=== PATIENT | female | born 1985 | race Caucasian/White ===

== ENCOUNTER 2025-01-06 23:50 | Emergency (ER) | payer MEDICAID, OTHER ==
[~2025-01-06] VITALS: Ht 160 cm; Wt 68.1 kg
[2025-01-07 00:48] VITALS: O2SAT 98
--- NOTE | 2025-01-07 01:05 | ED.PDOC ---
HPI (NEURO) HPI Comments Pt presents to the ER with C/O headache xtoday. PMH- migraines, pt reports associated N/V/D, dizziness, N/V/D, and neck tightness. Pt reports taking Robaxin @ 1400 with no relief. Upon provider assessment pt complaint of non radiating chest tightness with hand numbness. VSS, RR even and unlabored, SPO2 98% on RA. Provider Saad assessing patient at this time. 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 FIXER History Family History Family History: Reviewed,noncontributory to illness Social History Smoker: Non-Smoker Alcohol: Denies ETOH Use Drugs: Denies Drug Use Constitutional: denies: chills, diaphoresis, fatigue, fever, malaise, sweats, w eakness, others EENTM: denies: blurred vision, double vision, ear bleeding, ear discharge, ear drainage, ear pain, ear ringing, eye pain, eye redness, hearing loss, mouth pain, mouth swelling, nasal discharge, nose bleeding, nose congestion, nose pain, photophobia, tearing, throat pain, throat swelling, voice changes, others Respiratory: denies: cough, hemoptysis, orthopnea, SOB at rest, shortness of breath, SOB with excertion, stridor, wheezing, others Cardiovascular: denies: chest pain, dizzy spells, diaphoresis, Dyspnea on exertion, edema, irregular heart beat, left arm pain, lightheadedness, palpitations, PND, syncope, others Gastrointestinal: denies: abdomen distended, abdominal pain, blood streaked bowels, constipated, diarrhea, dysphagia, difficulty swallowing, hematemesis, melena, nausea, poor appetite, poor fluid intake, rectal bleeding, rectal pain, vomiting, others Genitourinary: denies: abnormal vagina bleeding, burning, dyspareunia, dysuria, flank pain, frequency, hematuria, incontinence, pain, , vagina di scharge, urgency, others Neurological: reports: headache; denies: dizziness, fainting, left sided numbness, left sided weakness, numbness, paresthesia, pre-existing deficit, right sided numbness, right sided weakness, seizure, speech problems, tingling, tremors, weakness, others Musculoskeletal: denies: back pain, gout, joint pain, joint swelling, muscle pain, muscle stiffness, neck pain, others Integumetry: denies: bruises, change in color, change in hair/nails, dryness, laceration, lesions, lumps, rash, wounds, others Allergic/Immunocompromised: denies: Difficulty Healing, Frequent Infections, Hives, Itching, others Hematologic/Lymphatic: denies: anemia, blood clots, easy bleeding, easy bruising, swollen glands, others Endocrine: denies: excessive hunger, excessive sweating, excessive thirst, excessive urination, flushing, intolerance to cold, intolerance to heat, unexplained weight gain, unexplained weight loss, others Psychiatric: denies: anxiety, bipolar disorder, depression, hopeless, panic disorder, schizophrenia, sleepless, suicidal, others Physical Exam General Appearance: No Apparent Distress, Normal HEENT: Normal ENT Inspection, Pharynx Normal, TMs Normal Neck: Limited Range of Motion, Tender Lateral Respiratory: Lungs Clear, No Respiratory Distress, Normal Breath Sounds Cardiovascular: No Edema, No JVD, No Murmur, No Gallop, Normal Peripheral Pulses, Regular Rate/Rhythm Breast Exam: Deferred Gastrointestinal: No Organomegaly, Non Tender, No Pulsatile Mass, Normal Bowel Sounds, Soft Genitalia: Deferred Pelvic: Deferred Rectal: Deferred Extremities: Normal capillary refill, Normal inspection, Normal range of motion, Non-tender, No pedal edema Musculoskeletal : Apperance: Normal Neurologic: Alert, No Motor Deficits, Normal Affect, Normal Mood, No Sensory Deficits Cerebellar Function: Normal Reflexes: Normal Skin: Dry, Normal Color, Warm Lymphatic: No Adenopathy Was a procedure done? Was a procedure done?: No Differential Diagnosis (SZ) Headache: Cluster, Migraine, Epidural Hemorrhage, Intracerebral Hemorrhage, Subarachnoid Hemorrhage, Subdural Hemorrhage X-Ray, Labs, Meds, VS Vital Signs Date Time Temp Pulse Resp B/P (MAP) Pulse Ox O2 Delivery O2 Flow Rate FiO2 01/07/25 01:00 103 01/07/25 01:00 97.6 107 10 112/72 (85) 98 97.6 01/07/25 00:48 98 Room Air* 0 21 01/07/25 00:47 98.0 104 14 113/71 (85) 98 98.0 Current Medications Medications (Trade) Dose Ordered Sig/Rajwinder Route Start Time Stop Time Status Last Admin Prochlorperazine Edisylate (Compazine Inj) 5 mg ONCE ONCE IV 01/07/25 01:15 01/07/25 01:16 DC 01/07/25 01:33 Sodium Chloride 1,000 ml @ 1,000 mls/hr Q1H ONCE IV 01/07/25 01:15 01/07/25 02:14 DC 01/07/25 01:33 Ketorolac Tromethamine (Toradol Injection) 30 mg ONCE ONCE IV 01/07/25 01:15 01/07/25 01:16 DC 01/07/25 01:33 Dexamethasone Sodium Phosphate (Decadron Injection) 10 mg ONCE ONCE IV 01/07/25 01:15 01/07/25 01:16 DC 01/07/25 01:33 Ondansetron HCl (Zofran) 4 mg ONCE ONCE IV 01/07/25 01:15 01/07/25 01:16 DC 01/07/25 01:32 X-Ray, Labs, Meds, VS Comment PATIENT GIVEN COMPAZINE 5 MG IV PUSH, DECADRON 10 MG IV, ZOFRAN 4 MG IV PUSH, TORADOL 30 MG IV AND NORMAL SALINE 1000 ML BOLUS. REPORTS RESOLUTION IN HEADACHE REQUESTING DISCHARGE AT THIS TIME. SCRIPT TRIAL OF SUMATRIPTAN ADVISED TO TAKE MEDICATIONS PRESCRIBED SIDE EFFECTS DISCUSSED. ADVISED TO FOLLOW UP WITH HER PCP IN 2-3 DAYS NECESSARY ER RETURN PRECAUTIONS GIVEN PATIENT INDICA PIA UNDERSTANDING AGREES WITH DISCHARGE PLAN OF CARE Time of 1ST Reevaluation: 01:03 Reevaluation 1ST: Unchanged Time of 2ND Reevaluation: 02:33 Reevaluation 2ND: Improved Patient Education/Counseling: Diagnosis, Treatment, Prognosis, Need For Follow Up Family Education/Counseling: No Family Present Departure 1 Departure Time of Disposition: 02:32 Impression: Primary Impression: Headache Qualified Codes: R51.9 - Headache, unspecified Disposition: 01 HOME / SELF CARE / HOMELESS Condition: Stable e-Prescriptions Sumatriptan Succinate (Sumatriptan Succinate) 25 Mg Tab 25 MG PO ONCE PRN for 3 Days, #6 TAB TAKE 1 TABLET BY MOUTH AT ONSET OF HEADACHE MAY REPEAT ANOTHER TABLET 2 HOURS LATER IF STILL WITH MIGRAINE Prov: CELESTE CRENSHAW 01/07/25 Discharged With: Significant Other Critical Care Note Critical Care Time?: No Stability Stability form required: CELESTE MeloP Jan 07, 2025 01:05
[2025-01-07] MEDS: ONDANSETRON HCL 4 MG/2 ML VIAL IV ONE (01:32)
[2025-01-07] MEDS: PROCHLORPERAZINE EDISYLATE 5 MG/ML 2ML VIAL IV ONE (01:33)
[2025-01-07] MEDS: SODIUM CHLORIDE 0.9% 1,000 ML IV ONE (01:33)
[2025-01-07] MEDS: KETOROLAC TROMETH 30 MG/ML 1ML VIAL IV ONE (01:33)
[2025-01-07] MEDS ORDERED: SUMA25TA2 PO (02:33)
[2025-01-07 03:49] VITALS: BP 122/78; PULSE 78; RESP 18; TEMP 98.1; O2SAT 98
--- NOTE | 2025-01-07 06:07 | ECG ---
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
== END 2025-01-07 03:54 | disposition home or self-care (01) ==
LOC: ER 23:50
DX: G43.909 Migraine, unspecified, not intractable, without status migrainosus (principal)
CPT/HCPCS: 93005; 96361; 96374; 96375; 99284; J0780; J1100; J1885; J2405; J7030

== ENCOUNTER 2025-01-13 12:51 | Emergency (ER) | payer MEDICAID ==
[~2025-01-13] VITALS: Ht 162.6 cm; Wt 66.9 kg
[2025-01-13 13:11] VITALS: BP 119/83; PULSE 109; RESP 16; TEMP 97.9; O2SAT 98
--- NOTE | 2025-01-13 13:33 | ED.PDOC ---
History of Present Illness HPI Comments A 39-YEAR-OLD FEMALE PRESENTS WITH A CHIEF COMPLAINT OF HEADACHE X 3 DAYS. PATIENT WAS JUST SEEN HERE AT THIS FACILITY 3 DAYS AGO AND WAS GIVEN A PRESCRIPTION FOR HER HEADACHE, BUT STATES THAT SHE DID NOT PICK IT UP. PER PT, SHE HAS HX OF MIGRAINE AND THIS TIME THE PAIN IS UNIQUE BECAUSE SHE HAS NECK PAIN, TINGLING AND NUMBNESS IN HER ARMS AND HANDS. PATIENT IS REQUESTING A CT SCAN OF HER HEAD. NO OTHER SYMPTOMS OR MODIFYING FACTORS PRESENT AT THIS TIME. PT IS ALERT, ORIENTATION X4 WITH NORMAL GAIT. Chief Complaint: Headache Time Seen by MD: 13:20 Primary Care Provider: n/a Reviewed Notes: Nurses Notes, Client Associate Notes, Allergies Allergies: Coded Allergies: NO KNOWN ALLERGIES (Unverified , 01/07/25) Home Meds Discontinued Scripts Sumatriptan Succinate (Sumatriptan Succinate) 25 Mg Tab, 25 MG PO ONCE PRN for 3 Days, #6 TAB TAKE 1 TABLET BY MOUTH AT ONSET OF HEADACHE MAY REPEAT ANOTHER TABLET 2 HOURS LATER IF STILL WITH MIGRAINE Prov:DENIRVINK [facility] 01/07/25 Information Source: Patient Mode of Arrival: Ambulatory Severity: Moderate Timing: Days Duration: Since onset, Days Prehospital treatment: None Medication Refill: For: Other (HEADACHE ) Past Medical History Past Medical History (Other): MIGRAINE HEADACHE Surgical History: Denies all surgeries VP DESIGN History: No Pertinent VP DESIGN History Family History Family History: Reviewed,noncontributory to illness Social History Smoker: Non-Smoker Alcohol: Denies ETOH Use Drugs: Denies Drug Use Lives In: Home Constitutional: denies: chills, diaphoresis, fatigue, fever, malaise, sweats, weakness, others EENTM: denies: blurred vision, double vision, ear bleeding, ear discharge, ear drainage, ear pain, ear ringing, eye pain, eye redness, hearing loss, mouth pain, mouth swelling, nasal discharge, nose bleeding, nose congestion, nose pain, photophobia, tearing, throat pain, throat swelling, voice changes, others Respiratory: denies: cough, hemoptysis, orthopnea, SOB at rest, shortness of breath, SOB with excertion, stridor, wheezing, others Cardiovascular: denies: chest pain, dizzy spells, diaphoresis, Dyspnea on exertion, edema, irregular heart beat, left arm pain, lightheadedness, palpitations, PND, syncope, others Gastrointestinal: denies: abdomen distended, abdominal pain, blood streaked bowels, constipated, diarrhea, dysphagia, difficulty swallowing, hematemesis, melena, nausea, poor appetite, poor fluid intake, rectal bleeding, rectal pain, vomiting, others Genitourinary: denies: abnormal vagina bleeding, burning, dyspareunia, dysuria, flank pain, frequency, hematuria, incontinence, pain, , vagina discharge, urgency, others Neurological: reports: headache, tingling; denies: dizziness, fainting, left sided numbness, left sided weakness, numbness, paresthesia, pre-existing deficit, right sided numbness, right sided weakness, seizure, speech problems, tremors, weakness, others Musculoskeletal: denies: back pain, gout, joint pain, joint swelling, muscle pain, muscle stiffness, neck pain, others Integumetry: denies: bruises, change in color, change in hair/nails, dryness, laceration, lesions, lumps, rash, wounds, others Allergic/Immunocompromised: denies: Difficulty Healing, Frequent Infections, Hives, Itching, others Hematologic/Lymphatic: denies: anemia, blood clots, easy bleeding, easy bruising, swollen glands, others Endocrine: denies: excessive hunger, excessive sweating, excessive thirst, excessive urination, flushing, intolerance to cold, intolerance to heat, unexplained weight gain, unexplained weight loss, others Psychiatric: denies: anxiety, bipolar disorder, depression, hopeless, panic disorder, schizophrenia, sleepless, suicidal, others All Other Systems: Reviewed and Negative Physical Exam General Appearance: No Apparent Distress, Normal HEENT: Normal ENT Inspection, PERRL/EOMI, Pharynx Normal, TMs Normal Neck: Full Range of Motion, Non-Tender, Normal, Normal Inspection Respiratory: Chest Non-Tender, Lungs Clear, No Accessory Muscle Use, No Respiratory Distress, Normal Breath Sounds Cardiovascular: No Edema, No JVD, No Murmur, No Gallop, Normal Peripheral Pulses, Regular Rate/Rhythm Breast Exam: Deferred Gastrointestinal: No Organomegaly, Non Tender, No Pulsatile Mass, Normal Bowel Sounds, Soft Genitalia: Deferred Pelvic: Deferred Rectal: Deferred Extremities: No calf tenderness, Normal capillary refill, Normal inspection, Normal range of motion, Non-tender, No pedal edema Musculoskeletal : Apperance: Normal Neurologic: Alert, automobile sales consultant II-XII nml as Tested, No Motor Deficits, Normal Affect, Normal Mood, No Sensory Deficits Cerebellar Function: Normal Reflexes: Normal Skin: Dry, Normal Color, Warm Peripheral Pulses: 2+ carotid (R), 2+ carotid (L) Lymphatic: No Adenopathy Was a procedure done? Was a procedure done?: No Differential Dx Considerations may include: MIGRAINE HEADACHE, TENSION HEADACHE, BRAIN MASS X-Ray, Labs, Meds, VS Vital Signs Date Time Temp Pulse Resp B/P (MAP) Pulse Ox O2 Delivery O2 Flow Rate FiO2 01/13/25 13:11 97.9 109 16 119/83 (95) 98 97.9 PATIENT: SHERIDAN JANEACCT: [id number]: [id number] : 1985 LOC: ER ROOM / BED: / AGE / SEX: 39 / F ADM STATUS: REG ER SERVICE [id number] ORDERING PHYSICIAN: FLOR EGAN PROCEDURE(s): HWOCT - HEAD WITHOUT CONTRAST REASON: HEADACHE ORDER NUMBER(s): [id number], ACCESSION NUMBER(s): [id number] EXAM: CT HEAD WITHOUT CONTRAST INDICATION: HEADACHE TECHNIQUE: CT of the head without intravenous contrast. Radiation Dose Information: CT Dose: CTDI volume is 51.24 mGy. Dose-length product is 821.48 mGy*cm The dose indicators for CT are the volume Computed Tomography (CT) Dose Index (CTDIvol) and the Dose Length Product (DLP), and are measured in units of mGy and mGy-cm, respectively. These indicators are not patient dose, but values generated from the CT scanner acquisition factors. The report includes radiation exposure data for exposures received during this examination. COMPARISON: None FINDINGS: There is no evidence of acute intracranial hemorrhage, extra-axial collection, mass effect, midline shift, herniation or hydrocephalus. The ventricles, sulci and cisterns are age appropriate. The juan-white differentiation is intact. Patchy periventricular and subcortical white matter hypoattenuation is nonspecific but may be related to small vessel ischemic disease. The visualized paranasal sinuses and mastoid air cells are clear. The surrounding soft tissues and osseous structures are unremarkable. IMPRESSION: 1. No acute intracranial abnormality. 2. No paranasal sinus or mastoid disease. ATED BY: FABIANA GROSSMAN Jr., DO DICTATED DATE/TIME: 01/13/251409 SIGNED BY: FABIANA GROSSMAN Jr., SIGNED DATE/TIME: 01/13/251409 CC: X-Ray, Labs, Meds, VS Comment EXTERNAL MEDICAL RECORDS: NONE INDEPENDENT HISTORIANS: NONE SOCIAL DETERMINANTS OF HEALTH: NONE LABS ORDERED: NONE REVIEWED AND INTERPRETED RESULTS: NONE IMAGING ORDERED: CT-HEAD TREATMENTS ORDERED: NONE PATIENT'S CASE AND RESULTS HAVE BEEN DISCUSSED WITH -- AND THEY AGREE WITH MY PLAN OF CARE. RX: IMITREX 50MG I HAVE DISCUSSED IMAGING AND LAB RESULTS WITH THE PATIENT AND HAVE INSTRUCTED THE PATIENT TO FOLLOW UP WITH THEIR PCP IN 1-2 DAYS. THE PATIENT FULLY UNDERSTANDS THEIR RESULTS AND ARE AWARE THEY NEED TO FOLLOW UP WITH THEIR PCP FOR FURTHER EVALUATION IF THEIR SYMPTOMS PERSIST. Time of 1ST Reevaluation: 13:50 Reevaluation 1ST: Improved Time of 2ND Reevaluation: 14:42 Reevaluation 2ND: Improved Patient Education/Counseling: Diagnosis, Treatment, Need For Follow Up Family Education/Counseling: Diagnosis, Treatment, Need For Follow Up Medical Screening: No EMC Exist At This Time SEPSIS Sepsis Screen Physician Orders Head Without Contrast (01/13/25 13:23) Vital Signs Date Time Temp Pulse Resp B/P (MAP) Pulse Ox O2 Delivery O2 Flow Rate FiO2 01/13/25 13:11 97.9 109 16 119/83 (95) 98 97.9 Departure 1 Departure Time of Disposition: 14:42 Impression: Primary Impression: Migraine headache Qualified Codes: G43.909 - Migraine, unspecified, not intractable, without status migrainosus Disposition: 01 HOME / SELF CARE / HOMELESS Condition: Stable Additional Instructions: FOLLOW-UP WITH PCP IN 1 TO 2 DAYS. TAKE MEDICATIONS PRESCRIBED. RETURN TO ED FOR ANY NEW OR WORSENING SYMPTOMS. e-Prescriptions Sumatriptan Succinate (Imitrex) 50 Mg Tab 1 TAB PO BID, #20 TAB Prov: FLOR EGAN 01/13/25 Discharged With: Self Critical Care Note Critical Care Time?: No Stability Stability form required: No Heart Score Heart Score: Heart Score Response (Comments) Value History N/A 0 EKG N/A 0 Age N/A 0 Risk Factors N/A 0 Troponin N/A 0 Total 0 I personally scribed for FLOR EGAN ([email or web address]) on 01/13/25 at 13:33. Electronically submitted by Howie Adan ([email or web address]). FLOR EGAN Jan 13, 2025 13:33
--- NOTE | 2025-01-13 14:11 | DVH ---
EXAM: CT HEAD WITHOUT CONTRAST INDICATION: HEADACHE TECHNIQUE: CT of the head without intravenous contrast. Radiation Dose Information: CT Dose: CTDI volume is 51.24 mGy. Dose-length product is 821.48 mGy*cm The dose indicators for CT are the volume Computed Tomography (CT) Dose Index (CTDIvol) and the Dose Length Product (DLP), and are measured in units of mGy and mGy-cm, respectively. These indicators are not patient dose, but values generated from the CT scanner acquisition factors. The report includes radiation exposure data for exposures received during this examination. COMPARISON: None FINDINGS: There is no evidence of acute intracranial hemorrhage, extra-axial collection, mass effect, midline s hift, herniation or hydrocephalus. The ventricles, sulci and cisterns are age appropriate. The juan-white differentiation is intact. Patchy periventricular and subcortical white matter hypoattenuation is nonspecific but may be related to small vessel ischemic disease. The visualized paranasal sinuses and mastoid air cells are clear. The surrounding soft tissues and osseous structures are unremarkable. IMPRESSION: 1. No acute intracranial abnormality. 2. No paranasal sinus or mastoid disease.
[2025-01-13] MEDS ORDERED: SUMA50TA2 PO (14:42)
== END 2025-01-13 14:47 | disposition home or self-care (01) ==
LOC: ER 12:51
DX: G43.909 Migraine, unspecified, not intractable, without status migrainosus (principal); Z79.899 Other long term (current) drug therapy
CPT/HCPCS: 70450